=== PATIENT | female | born 1975 | race Caucasian/White ===

== ENCOUNTER → 2019-10-26 17:58 | Outpatient (BNVA) | payer BC, SELFPAY | PROVIDERS: Family Provider Family Medicine; PCP Family Medicine; Visit Provider Nurse Practitioner | DX: R51 Headache (principal); J02.9 Acute pharyngitis, unspecified | CPT/HCPCS: 87081; 87804; 87880 ==

== ENCOUNTER → 2020-01-10 13:25 | Outpatient (BNVA) | payer BC, SELFPAY | PROVIDERS: Family Provider Family Medicine; PCP Registered Nurse; Visit Provider Podiatrist Foot & Ankle Surgery | DX: M79.671 Pain in right foot (principal) | CPT/HCPCS: 73630 ==

== ENCOUNTER 2020-01-10 15:11 | Outpatient (CLI) | payer BC, SELFPAY | END 2020-01-10 15:12 | disposition home or self-care (01) | LOC: SPT 15:11 | PROVIDERS: Family Provider Family Medicine; PCP Registered Nurse; Visit Provider Podiatrist Foot & Ankle Surgery | DX: Z46.89 Encounter for fitting and adjustment of other specified devices (principal); M72.2 Plantar fascial fibromatosis | CPT/HCPCS: L4361 ==

== ENCOUNTER → 2020-01-24 09:39 | Outpatient (BNVA) | payer BC, SELFPAY | PROVIDERS: Family Provider Family Medicine; PCP Registered Nurse; Visit Provider Registered Nurse | DX: E11.9 Type 2 diabetes mellitus without complications (principal) | CPT/HCPCS: 80053; 80061; 83036; 83721 ==

== ENCOUNTER → 2020-04-15 11:00 | Outpatient (BNVA) | payer BC, SELFPAY | PROVIDERS: Family Provider Family Medicine; PCP Registered Nurse; Visit Provider Registered Nurse | DX: E11.9 Type 2 diabetes mellitus without complications (principal) | CPT/HCPCS: 83036 ==

== ENCOUNTER 2021-05-08 08:10 | Outpatient (CLI) | payer BC, SELFPAY ==
--- NOTE | 2021-05-08 08:19 | MM_ITS ---
WS: [id number] DIAGNOSTIC BILATERAL DIGITAL MAMMOGRAM WITH CAD Bilateral breast ultrasound. HISTORY: ABNORMAL MAMMOGRAM COMPARISON: 09/03/2020 and 10/02/2020 TECHNIQUE: Bilateral craniocaudad, mediolateral oblique, and mediolateral views are submitted. Compre ssion CC and MLO projections bilateral. Computer aided detection utilized. Breast composition: There are scattered areas of fibroglandular density. There is a mild asymmetry no steve in the RIGHT breast at 10:00. Benign-appearing lymph node posterior RIGHT breast at 10:00. There are additional benign calcifications. Mild thickening posterior to the RIGHT nipple. There is a focal asymmetry central to the nipple on the LEFT breast and a posterior depth. Just towards 12:00. This a symmetry measures approximately 1.0 cm. Best seen on the CC projection. Bilateral breast ultrasound. RIGHT breast: No abnormality in the subareolar region. Small lymph node at 10:00, 8 cm nipple measure s 5 x 6 x 4 mm and is unchanged. LEFT breast: No soft tissue abnormality or asymmetry noted at 12:00 LEFT breast against the chest wal l. MM/[id number] IMPRESSION: BI-RADS: 3-Probably Benign FOLLOW UP: 6 Month Follow-up No progression of abnormalities within either breast. No identifiable significa nt abnormality by ultrasound. The asymmetries have not progressed. Recommend 6 month diagnostic bilateral mammogram follow-up. Necessary to document continued stability. Stability over a period of 2 years should be obtained.
== END 2021-05-08 08:11 | disposition home or self-care (01) ==
LOC: RADSHAW 08:15
PROVIDERS: PCP Registered Nurse; Visit Provider Registered Nurse
DX: R92.1 Mammographic calcification found on diagnostic imaging of breast (principal); N64.89 Other specified disorders of breast
CPT/HCPCS: 76642; 77066

== ENCOUNTER → 2022-05-13 08:56 | Outpatient (BNVA) | payer BC, SELFPAY | PROVIDERS: PCP Registered Nurse; Visit Provider Registered Nurse | DX: E78.5 Hyperlipidemia, unspecified (principal); E11.69 Type 2 diabetes mellitus with other specified complication; Z71.3 Dietary counseling and surveillance; Z71.82 Exercise counseling | CPT/HCPCS: 80053; 80061; 83036 ==

== ENCOUNTER → 2022-08-03 14:46 | Outpatient (BNVA) | payer BC, SELFPAY | PROVIDERS: PCP Registered Nurse; Visit Provider Registered Nurse | DX: E11.69 Type 2 diabetes mellitus with other specified complication (principal); E78.5 Hyperlipidemia, unspecified | CPT/HCPCS: 83036 ==

== ENCOUNTER → 2022-11-05 09:00 | Outpatient (BNVA) | payer SELFPAY | PROVIDERS: PCP Registered Nurse; Visit Provider Registered Nurse | DX: E11.9 Type 2 diabetes mellitus without complications (principal) | CPT/HCPCS: 80053; 83036 ==

== ENCOUNTER 2023-06-10 15:06 | Outpatient (CLI) | payer OTHER, SELFPAY ==
--- NOTE | 2023-06-10 15:12 | MM_ITS ---
WS: [id number] VIEWS: MLO and CC views both breasts. 3D digital tomosynthesis is also included in this exam. Comparison made with prior exam of 09/10/2020, 10/02/2020, 05/08/2021.. Findings: There was no sign of mass, architectural distortion or suspicious calcification in either breast. The re are scattered areas of fibroglandular density Impression: MM/[place] [id number] BI-RADS: 2-Benign finding. FOLLOW-UP: 1 Year Follow-up This mammogram was also analyzed by the Computer Aided Detection System R2 [employer].
== END 2023-06-10 15:07 | disposition home or self-care (01) ==
PROVIDERS: PCP Registered Nurse; Visit Provider Nurse Practitioner Family
DX: Z12.31 Encounter for screening mammogram for malignant neoplasm of breast (principal)
CPT/HCPCS: 77063; 77067

== ENCOUNTER 2024-08-28 14:31 | Outpatient (CLI) | payer OTHER, SELFPAY ==
--- NOTE | 2024-08-28 14:39 | MM_ITS ---
WS: [id number] BILATERAL 3D TOMOSYNTHESIS DIGITAL SCREENING MAMMOGRAPHY WITH CAD CLINICAL INFORMATION: SCREENING HISTORY: Screening mammogram. No current complaints. COMPARISON: 2022. TECHNIQUE: Bilateral CC and MLO views. FINDINGS: Scattered fibroglandular densities bilaterally. No suspicious focal mass, asymmetry, calcifications, or architectural distortion. No evidence of malignancy. Scattered punctate calcifications. Scattered calcifications. Stable nodule likely intramammary lymph node along the RIGHT axillary tail. Dense ayse ast tissue 12 o'clock position LEFT breast posterior depth similar to the prior studies. MM/MM [facility] tomosynthesis [id number] IMPRESSION: DENSITY: There are scattered areas of fibroglandular density. BI-RADS: 2 - Benign. FOLLOW UP: 1 Year Follow-up Recommend return to annual screening mammography.
== END 2024-08-28 14:32 | disposition home or self-care (01) ==
LOC: RAD 14:32
PROVIDERS: PCP Registered Nurse; Visit Provider Registered Nurse
DX: Z12.31 Encounter for screening mammogram for malignant neoplasm of breast (principal); R92.323 Mammographic fibroglandular density, bilateral breasts; R92.1 Mammographic calcification found on diagnostic imaging of breast; N63.31 Unspecified lump in axillary tail of the right breast; N63.25 Unspecified lump in the left breast, overlapping quadrants
CPT/HCPCS: 77063; 77067

== ENCOUNTER 2025-01-01 14:58 | Oncology outpatient (recurring) (ONCR) | payer OTHER, SELFPAY ==
[2025-01-01 15:20] LABS: Basophils % 0.3 %; Eosinophils # 0.1 10^3/uL (0.0-0.8); Eosinophils % 0.8 %; Hematocrit 36.6 % (36-47); Lymphocytes # 3.9 10^3/uL (0.8-4.8); Mean Corpuscular HGB Conc 33.3 g/dL (30-55); Mean Corpuscular Hemoglobin 30.5 pg (27-33); Mean Corpuscular Volume 91.5 fl (85-98); Mean Platelet Volume 9.9 fL (7.4-10.4); Monocytes % 6.7 %; Neutrophils # 9.71 10^3/uL (1.8-7.7); Neutrophils % 65.2 %; Nucleated Red Blood Cells % 0 %; Platelet Count 321 10^3/cmm (157-399); Red Cell Distribution Width 13.6 % (12.1-15.1); White Blood Count 14.87 10^3/uL (3.29-11.43)
== END 2025-01-26 23:59 | disposition home or self-care (01) ==
PROVIDERS: PCP Registered Nurse; Visit Provider Internal Medicine Medical Oncology
DX: F51.02 Adjustment insomnia (principal); E11.69 Type 2 diabetes mellitus with other specified complication; E78.5 Hyperlipidemia, unspecified
CPT/HCPCS: 36415; 85025

== ENCOUNTER → 2025-06-26 09:38 | Outpatient (BNVA) | payer OTHER, SELFPAY | PROVIDERS: PCP Registered Nurse; Visit Provider Podiatrist Foot & Ankle Surgery | DX: M79.89 Other specified soft tissue disorders (principal); M72.2 Plantar fascial fibromatosis; E11.69 Type 2 diabetes mellitus with other specified complication; M72.0 Palmar fascial fibromatosis [Dupuytren]; Z79.85 Long-term (current) use of injectable non-insulin antidiabetic drugs | CPT/HCPCS: 73630 ==

== ENCOUNTER → 2025-07-30 08:25 | Outpatient (BNVA) | payer OTHER, SELFPAY | PROVIDERS: PCP Registered Nurse; Visit Provider Physician Assistant | DX: M72.0 Palmar fascial fibromatosis [Dupuytren] (principal); M79.642 Pain in left hand | CPT/HCPCS: 73130 ==

== ENCOUNTER 2025-07-30 09:02 | Outpatient (CLI) | payer OTHER, SELFPAY | END 2025-07-30 09:03 | disposition home or self-care (01) | LOC: SOT 09:03 | PROVIDERS: PCP Registered Nurse; Visit Provider Physician Assistant | DX: Z46.89 Encounter for fitting and adjustment of other specified devices (principal); M72.0 Palmar fascial fibromatosis [Dupuytren] | CPT/HCPCS: 97760; L3923 ==